=== PATIENT | male | born 1965 | race African-American/Black ===

== ENCOUNTER 2017-04-12 16:44 | Observation (INO) ==
[2017-04-12] MEDS ORDERED: BENADRYL IV ONE (18:30)
[2017-04-12] MEDS ORDERED: DECADRON IV ONE (18:30)
[2017-04-12] MEDS ORDERED: PEPCID IV ONE (18:32)
[2017-04-12] MEDS ORDERED: SODIUM CHLORIDE 0.9% INJ ONE (18:32)
--- NOTE | 2017-04-12 18:40 | PROVIDER DOCUMENTATION ---
HPI-General Adult - General Chief Complaint: Edema Stated Complaint: ALLERGIC REACTION Time Seen by Provider: 04/12/17 16:48 Source: patient Allergies/Adverse Reactions: Patient Allergies Allergy/AdvReac Type Severity Reaction Status Date / Time No Known Allergies Allergy Verified 08/31/13 23:37 Home Medications: Home Medication List Medication Instructions Recorded Confirmed Last Taken Type Insulin Human Regular [Humulin R] 45 units SQ DAILY 01/08/13 04/12/17 04/12/17 07:00 History Insulin Human Regular [Humulin R] 45 units SQ HS 01/08/13 04/12/17 04/11/17 21: 00 History Lisinopril 10 mg PO DAILY 01/08/13 04/12/17 04/11/17 History Metformin [Glucophage] 500 mg PO TID 01/08/13 04/12/17 04/12/17 07:00 History - History of Present Illness -Gen Adult Nature of Presenting Problems: This pt presents today c complaints of angioedema. Pt is currently taking Lisinopril. He called his PCP yesterday and was told to stop taking his lisinopril and come to the ED if his symptoms worsened. There is no tongue swelling but he is now reporting some generalized urticaria. No SOB or difficulty swallowing. No other issues or complaints. Location of Pain/Injury: reports: face, mouth Onset/Duration: reports: 2 days ago Timing: reports: still present Context/Activities at Onset: reports: none Similar Symptoms Previously?: No Recently seen or treated by another doctor?: Yes Review of Systems - Adult - REVIEW OF SYSTEMS - ADULT Constitutional: reports: no symptoms reported. denies: see HPI, fever Eyes: reports: no symptoms reported. denies: discharge, dry eyes Ears, Nose, Mouth & Throat: reports: see HPI. denies: sinus problem, nose pain Cardiovascular: reports: no symptoms reported. denies: chest pain, edema Respiratory: reports: no symptoms reported. denies: chronic cough, cough Gastrointestinal: reports: no symptoms reported. denies: abdominal pain, hematemesis Genitourinary: reports: no symptoms reported. denies: dysuria, discharge Musculoskeletal: reports: no symptoms reported. denies: bone pain, back pain Integumentary: reports: see HPI, hives. denies: hair loss, mole changes, nail changes Neurological: reports: no symptoms reported. denies: ataxia, dizziness/vertigo Psychiatric: reports: no symptoms reported. denies: anxiety, anti-depressant use Endocrine: reports: no symptoms reported Hematologic/Lymphatic: reports: no symptoms reported Allergic/Immunologic: reports: no symptoms reported All Other Systems: Reviewed and Negative Past History - Adult - PAST MEDICAL HISTORY-ADULT Review of Records: reports: Old Records Reviewed, Nursing Assessment Review, Medications Reviewed, Social history reviewed & non-contributory. Major Childhood Illnesses: reports: denies history Cardiovascular: reports: HTN Respiratory: reports: denies history Gastrointestinal: reports: denies history Obstetrical/Gynecological: reports: denies history Genitourinary: reports: denies history Musculoskeletal: reports: denies history Neurological: reports: denies history Endocrine/Immune: reports: denies history Other Conditions: reports: denies history - IMMUNIZATION STATUS Childhood Immunizations: See Nurse Assessment Flu Vaccine: See Nurse Assessment - FAMILY HISTORY Family History: reviewed, not pertinent Physical Exam-General - PHYSICAL EXAM-ADULT Initial Vital Signs Reviewed: Yes - CONSTITUTIONAL General Appearance: appears well, alert, no apparent distress - EYES Eyes: PERRL/EOMI, pink conjunctivae - HEAD, EARS, NOSE, MOUTH & THROAT HENMT: moist mucous membranes, normal ENT inspection, angioedema - NECK Neck: supple, normal inspection - RESPIRATORY Respiratory: chest non-tender, lungs clear, normal breath sounds, no pleuratic chest pain, no respiratory distress, no accessory muscle use. negative: respiratory distress, decreased breath sounds, accessory muscle use - CARDIOVASCULAR Cardiovascular: normal peripheral pulses, regular rate, rhythm. negative: bradycardia, tachycardia - GASTROINTESTINAL (ABDOMEN) Abdominal Exam: normal bowel sounds, non tender, soft - LYMPHATIC Lymphatic: no adenopathy - MUSCULOSKELETAL Back Exam: normal inspection, no CVA tenderness, no vertebral tenderness Extremity: normal range of motion, non-tender - SKIN Integumentary: normal turgor, warm/dry, other (urticaria) - NEUROLOGIC Neurologic: grossly normal, no motor/sensory deficits - PSYCHIATRIC Psych/Mental Status: normal mood/affect, normal thought content, normal thought process, oriented x 3 Progress - PLAN OF CARE/RESULTS Progress/Plan/Lab Results: Vital Signs - 8 hr 04/12/17 17:09 Temperature 98.6 F Pulse Rate 89 Respiratory Rate 18 Blood Pressure 180/98 O2 Sat by Pulse Oximetry 100 Orders Category Date Time Status Saline Loc NOW Care 04/12/17 18:29 Active Transfuse .Give-Transfuse Care 04/12/17 18:29 Active CBC WITH ELECTRONIC DIFF [HEME] Stat Lab 04/12/17 18:29 Uncollected COMPREHENSIVE METABOLIC PANEL [CHEM] Stat Lab 04/12/17 18:29 Uncollected FRESH FROZEN PLASMA [BBK] Stat Lab 04/12/17 18:29 Uncollected TYPE & SCREEN [BBK] Stat Lab 04/12/17 18:29 Uncollected Dexamethasone [Decadron] Med 04/12/17 18:30 Discontinued 10 mg IV NOW ONE Diphenhydramine [Benadryl] Med 04/12/17 18:30 Discontinued 25 mg IV NOW ONE Famotidine [Pepcid] Med 04/12/17 18:32 Discontinued 20 mg IV NOW ONE Sodium Chloride 0.9% Med 04/12/17 18:32 Discontinued 5 - 10 ml INJ NOW ONE - CONSULTS/PCP/HOSPITALIST Notification #1 *Consult/PCP/Hospitalist*: Dr. Desai Time Discussed: 18:54 Consult Disposition: Admit Departure - Departure Date of Disposition Decision: 04/12/17 Time of Disposition Decision: 18:54 DIAGNOSIS: [id number] Qualifiers: Encounter type: initial encounter Qualified Code(s): T78.3XXA - Angioneurotic edema, initial encounter Disposition: ADMITTED INPATIENT 09 Certified Medical Emergency: Emergent Condition: Stable Referrals and Follow-Ups: Ronald Desai MD [Primary Care Provider] - - Critical Care Note This patient required my direct & personal management of CC.: No Attestation - Physician/ CLEO Attestation Patient care was provided by Advanced Practice Provider:: Yes Advanced Practice Provider:: Jerry Morton Advanced Practice Provider documentation review:: The Mid-level provider documentation, treatment plan and medical decision making was reviewed by the physician who agrees with all treatment and medical decision making by the MLP. The physician spent face to face time with patient:: Yes Advanced Practice Provider documentation review:: The physician spent face to face time with this patient and agrees with all MLP documentation, treatment, and medical decision making by the MLP. See provider notes for further information.
[2017-04-12 19:02] LABS: MANUAL DIFF NEEDED? NO
[2017-04-12 19:13] LABS: BASO% 0.2 % (0.0-0.8); EOS# 0.21 X1000 (0.0-0.7); EOS% 1.8 % (0.0-10.0); HEMATOCRIT 43.3 % (42.0-52.0); HEMOGLOBIN 14.7 g/dL (14.0-18.0); IMM GRAN# 0.02 X1000 (0.0-0.04); IMM GRAN% 0.2 % (0.0-0.5); LYMPH# 2.65 X1000 (1.2-3.4); MCH 28.8 PG (27-31); MCHC 33.9 g/dL (33-37); MCV 84.9 FL (81-99); MONO# 0.73 X1000 (0.11-0.59); MONO% 6.3 % (1.7-9.3); MPV 10.1 FL (7.4-10.4); NEUT% 68.5 % (42.2-75.2); PLT 245 X1000 (130-400)
[2017-04-12 19:32] LABS: AGAP 11; ALBUMIN 4.6 g/dL (3.5-5.0); ALKALINE PHOSPHATASE 60 U/L (32-122); BUN 11 mg/dL (8-22); CALCIUM 9.5 mg/dL (8.8-10.2); CHLORIDE 100 mmol/L (98-107); COSMO 279; GOT 25 U/L (10-34); GPT 21 U/L (10-44); POTASSIUM 3.7 mmol/L (3.5-5.1); SODIUM 140 mmol/L (136-145); TCO2 29 mmol/L (25-35); TOTAL BILIRUBIN 0.55 mg/dL (0.20-1.00)
--- NOTE | 2017-04-12 20:25 | HISTORY AND PHYSICAL ---
HISTORY OF PRESENT ILLNESS: Mr. English is a 56-year-old, gentleman who comes to the emergency room with swelling of the lips and facial edema. He recently had right eye surgery for a retinal detachment in [place] and he was given some drops initially. He started having this edema after he had these drops; however, he has hardly been using the drops now and he still has edema. He has been on lisinopril for last several years. He has insulin-dependent diabetes. He has minimal symptoms of neuropathy, like tingling and numbness at times. He also has hypertension. The only surgery he had was a detached retina surgery. He does not smoke. Does not drink. ALLERGIES: Lisinopril or SELINA inhibitors. REVIEW OF SYSTEMS: Other than itching and rash, he did have some urticarial rash earlier. PHYSICAL EXAMINATION: GENERAL: Patient is alert and oriented. He has facial edema with edema of the both upper and lower lips. However, there is no nasopharyngeal edema. VITAL SIGNS: Reveal blood pressure of 186/110, temperature normal, pulse 80 per minute, respiratory rate 20 per minute. HEENT: Head normocephalic. Pupils PERRLA. Fundus examination, he has detached retina on the right side. Detailed fundus exam not done. NECK: Supple. JVP normal. ENT examination unremarkable. There is no evidence of lymphadenopathy, thyroid enlargement, pedal edema, calf tenderness, anemia, cyanosis or clubbing. Pedal pulses well felt. BREASTS: Exam reveals mild gynecomastia. Chest normal inspection. LUNGS: Clear on auscultation. PMI in the normal position. HEART: Sounds normal. No murmur, gallop or rub noted. ABDOMEN: Nondistended. Hernial orifices normal. No guarding, rigidity, free fluid, masses, or organomegaly. Bowel sounds normal. RECTAL: Deferred. COMPLAINT INVESTIGATOR: Higher functions normal. Cranial nerves normal. Motor and sensory system examination unremarkable. Deep tendon reflexes normal. Plantars downgoing. Skull and spine examination normal for age. No cerebellar signs or signs of meningeal irritation. LOCOMOTOR: Unremarkable. SKIN: Unremarkable except for the rash and angioedema involving both upper lip more than the lower lip. He did have some urticarial rash on his trunk. PLAN: Angioedema, probably secondary to lisinopril. We have given him IV Benadryl as well as IV Decadron and IV Protonix now. We will watch him overnight today and definitely stop lisinopril. cc: Ronald Desai MD
[2017-04-12] MEDS ORDERED: HUMULIN R SUBQ ONE (20:32)
[2017-04-12] MEDS ORDERED: LABETALOL IV PRN ×2 (20:32→21:15)
[2017-04-12] MEDS ORDERED: NORCO-5 PO PRN (21:15)
[2017-04-12] MEDS ORDERED: BENADRYL IV PRN (21:15)
[2017-04-13] MEDS: HUMALOG SUBQ SCH ×2 (06:40→10:43)
[2017-04-13 07:34] LABS: BASO% 0.1 % (0.0-0.8); HEMATOCRIT 41.1 % (42.0-52.0); IMM GRAN# 0.02 X1000 (0.0-0.04); IMM GRAN% 0.2 % (0.0-0.5); LYMPH# 0.96 X1000 (1.2-3.4); LYMPH% 7.7 % (20.5-51.1); MANUAL DIFF NEEDED? YES; MCH 28.7 PG (27-31); MCHC 34.1 g/dL (33-37); MCV 84.4 FL (81-99); MONO# 0.51 X1000 (0.11-0.59); MONO% 4.1 % (1.7-9.3); MPV 10.2 FL (7.4-10.4); NEUT% 87.9 % (42.2-75.2); PLT 222 X1000 (130-400); RBC 4.87 XMIL (4.7-6.1)
[2017-04-13 07:53] LABS: LYMPHS 4 % (21-51); MONO 2 % (1-9)
[2017-04-13 07:58] VITALS: BP 161/99
[2017-04-13 08:20] LABS: AGAP 15; BUN 15 mg/dL (8-22); CALCIUM 9.3 mg/dL (8.8-10.2); CHLORIDE 98 mmol/L (98-107); COSMO 284; SODIUM 136 mmol/L (136-145); TCO2 23 mmol/L (25-35)
[2017-04-13 09:18] LABS: POTASSIUM 4.9 mmol/L (3.5-5.1)
--- NOTE | 2017-04-13 12:07 | PROGRESS NOTE ---
DATE: 04/13/2017 Mr. English' blood sugar is still out of control. However his facial edema and angioedema on the lips is much better. I think the hyperglycemia is because of the large dose of Decadron that he received. He is feeling better. I am going to discharge him home. I am going to change the blood pressure medicine to Toprol-XL 100 once daily. -9 cc: Ronald Desai MD
[2017-04-13] MEDS ORDERED: GLUCOPHAGE PO SCH (13:00)
--- NOTE | 2017-04-13 20:46 | DISCHARGE SUMMARY ---
ADMISSION DATE: 04/12/2017 DISCHARGE DATE: 04/13/2017 HOSPITAL COURSE: Mr. English was admitted to the emergency room with severe angioedema of the lips as well as of the face. He had a reaction to lisinopril. The lisinopril was stopped. He was given IV Benadryl as well as Decadron. The Decadron made the blood sugar go up significantly. He is going to be changing from lisinopril to Toprol-XL 100 once daily. I will be seeing him in about 7 days and we will continue his Humulin 70/30, 45 units twice daily as he is taking. cc: Ronald Desai MD
[2017-04-14] MEDS ORDERED: TOPROL XL PO SCH (09:00)
== END 2017-04-13 13:31 | disposition home or self-care (01) ==
LOC: ED 16:44 → 3N 16:44
PROVIDERS: ADMIT Internal Medicine; ATTEND Internal Medicine

== ENCOUNTER 2019-03-04 11:21 | Inpatient (IN) ==
[2019-03-04] MEDS ORDERED: D50W SYRINGE IV PRN (14:00)
--- NOTE | 2019-03-04 14:36 | EKG Report ---
Test Performed on : 03/04/2019 2:22:38 PM Test Reason : R/O infection Blood Pressure : / mmHG Vent. Rate : 074 BPM Atrial Rate : 074 BPM P-R Int : 152 ms QRS Dur : 076 ms QT Int : 412 ms P-R-T Axes : 061 065 082 degrees QTc Int : 457 ms Normal sinus rhythm. Normal ECG No previous ECGs available Confirmed by Dick KYLE, Jean-Paul Soliman ([id number]) on 03/04/2019 3:02:10 PM
[2019-03-04] MEDS ORDERED: INSULIN PEN NEEDLES ONE (14:50)
[2019-03-04] MEDS: ROCEPHIN 1 GM in NS 50 ML IV SCH (14:56)
[2019-03-04 15:05] LABS: BASO# 0.05 X1000 (0.0-0.2); BASO% 0.5 % (0.0-0.8); HEMATOCRIT 40.9 % (42.0-52.0); HEMOGLOBIN 13.6 g/dL (14.0-18.0); IMM GRAN# 0.03 X1000 (0.0-0.04); IMM GRAN% 0.3 % (0.0-0.5); LYMPH# 2.08 X1000 (1.2-3.4); LYMPH% 20.9 % (20.5-51.1); MCHC 33.3 g/dL (33-37); MCV 87.2 FL (81-99); MONO# 0.95 X1000 (0.11-0.59); MONO% 9.5 % (1.7-9.3); MPV 10.3 FL (7.4-10.4); NEUT# 6.54 X1000 (1.4-6.5); NEUT% 65.8 % (42.2-75.2); PLT 214 X1000 (130-400); RBC 4.69 XMIL (4.7-6.1); RDW 13.3 % (11.5-14.5); WBC 9.95 X1000 (4.8-10.8)
--- NOTE | 2019-03-04 15:09 | Diag Imaging Result Doc PS360 ---
EXAM: CHEST-2 VIEWS HISTORY: r/o infection TECHNIQUE: Chest two views COMPARISON: None. FINDINGS: The lungs are well expanded. The heart is not enlarged. The vessels are not distended. There are no infiltrates. No pleural effusions. IMPRESSION: No pneumonia. Electronically signed by Ascencion Boles 03/04/2019 3:06 PM
[2019-03-04 15:26] LABS: AGAP 8; ALB/GLOB RATIO 1.3; ALKALINE PHOSPHATASE 65 U/L (32-122); BUN 13 mg/dL (8-22); CALCIUM 8.7 mg/dL (8.8-10.2); CHLORIDE 100 mmol/L (98-107); COSMO 285; CREATININE 1.1 mg/dL (0.7-1.2); ESTIMATED GFR > 60; GLUCOSE 300 mg/dL (70-104); GOT 24 U/L (10-34); GPT 17 U/L (10-44); POTASSIUM 4.4 mmol/L (3.5-5.1); SODIUM 137 mmol/L (136-145); TCO2 29 mmol/L (25-35); TOTAL BILIRUBIN 0.97 mg/dL (0.20-1.00); TOTAL PROTEIN 7.1 g/dL (6.3-8.3)
[2019-03-04] MEDS: ULTRAM PO PRN ×2 (16:03→22:03)
[2019-03-04] MEDS: GLUCOPHAGE PO SCH (17:30)
[2019-03-04] MEDS: HUMULIN 70/30 SUBQ SCH (17:30)
[2019-03-04] MEDS: HUMALOG SUBQ SCH ×2 (17:33→20:39)
--- NOTE | 2019-03-04 19:33 | Diag Imaging Result Doc PS360 ---
EXAM: FOOT 2 VIEWS LEFT HISTORY: left 2nd toe necrosis TECHNIQUE: Left foot, two views. A complete series was not ordered. COMPARISON: None. FINDINGS: No fracture. No dislocation. Prominent atherosclerosis. No bone erosions identified on these two views. IMPRESSION: No bony abnormality to the second toe. Electronically signed by Ascencion Boles 03/04/2019 7:30 PM
--- NOTE | 2019-03-04 20:47 | HISTORY AND PHYSICAL ---
HISTORY OF PRESENT ILLNESS: Mr. English, who is a 53-year-old gentleman, comes with pain in the left foot with gangrenous toe. He had cellulitis before and acute ischemia. He was treated with Levaquin without much relief, and now the skin is dark black and appears gangrenous, and there is some cellulitis. We decided to admit him to the hospital as he has not been responding to outpatient therapy. Mr. English is a known case of diabetes for the last 20 years and he has hypertension also. He had surgery for a torn retina in the right eye. This is the only surgery he had. ALLERGIES: He is severely allergic to lisinopril. He had severe angioedema from it. REVIEW OF SYSTEMS: He has not been a smoker. Does not drink. Allergic to lisinopril. He has always been noncompliant about his diabetes. Sometimes, he would stick to the diet and sometimes he does not stick to his insulin regimen. Other details are noncontributory. Other than numbness in both feet and pain in the left foot, it is noncontributory. PHYSICAL EXAMINATION: VITAL SIGNS: Temperature 97.5 degrees Fahrenheit, pulse 77 per minute, respiratory rate 16 per minute, blood pressure 134/78. HEENT: Head normocephalic. Pupils PERRLA. Fundus examination could not be done. ENT examination is unremarkable. NECK: Supple. JVP normal. There is no evidence of lymphadenopathy, thyroid enlargement, pedal edema, cough, tenderness, anemia, or clubbing. There is mild cyanosis of the left foot with ischemic left 2nd toe. SKIN: Somewhat dark black in color. It appears gangrenous and there is some cellulitis with it. PULSES: Pedal pulses are feeble. BREASTS: Normal. CHEST: Normal to inspection. LUNGS: Clear to auscultation. HEART: PMI in the normal position. Heart sounds normal. No murmur, gallop or rub noted. ABDOMEN: Nondistended. Hernial orifices normal. No guarding or rigidity, free fluid, masses, or organomegaly. Bowel sounds normal. RECTAL: Deferred. INSPECTOR RETURNED MATERIALS: Higher functions normal. Cranial nerves normal. Motor and sensory system examination reveals some impairment of the touch sensation in both feet. There is some impairment in the pain sensation, too. Deep tendon reflexes are sluggish. Plantars downgoing. SKULL AND SPINE: Examination normal for age. No cerebellar signs or signs of meningeal irritation. Locomotor system normal. IMPRESSION: 1. Severe ischemia of the left foot, especially left 2nd toe. 2. Diabetes, insulin-dependent, with peripheral neuropathy. 3. History of mild hypertension. PLAN: Consult with Dr. Fong and put him on sliding scale as well as continue the regular insulin, and continue his antibiotics, intravenous Rocephin. cc: Ronald Desai MD
[2019-03-05] MEDS: HUMALOG SUBQ SCH ×4 (06:40→21:00)
[2019-03-05] MEDS: TOPROL XL PO SCH (09:20)
[2019-03-05] MEDS: ULTRAM PO PRN ×2 (09:20→18:03)
[2019-03-05] MEDS: HUMULIN 70/30 SUBQ SCH ×2 (09:22→18:03)
[2019-03-05] MEDS: GLUCOPHAGE PO SCH (09:23)
--- NOTE | 2019-03-05 09:45 | PROGRESS NOTE ---
DATE: 03/05/2019 SUBJECTIVE: Mr. English was admitted yesterday with gangrenous toe and cellulitis on the left foot. His blood sugar went down to 65 yesterday. He was seen by Dr. Fong. Foot x-ray is normal. Arterial flow studies have been done. We will continue with the current management. -2 cc: Ronald Desai MD
[2019-03-05] MEDS: ROCEPHIN 1 GM in NS 50 ML IV SCH (14:14)
--- NOTE | 2019-03-05 15:18 | VASCULAR LAB ---
PROCEDURE NAME: Arterial Bilateral Legs - 03/04/2019 MILITARY ANALYST: REFERRING PHYSICIAN: Dr. Desai. INDICATIONS: Gangrene toes. FINDINGS: Brachial artery was 149, left 158, high thigh on the right is 260, left 214, low thigh on the right is 208, left 188, calf on the right 231, left 170, DP on the right 193, on the left 0,PT on the right is 201, left. 135. Toe pressure on the right 117, left 43. YESSENIA on the right 1.27, left 0.85. TBI on the right 0.74, left 0.27. FINDINGS: In the right lower extremity there are normal waveforms, normal YESSENIA to the level of the toes. On the left, there does appear there is some blunting distally in the dorsalis pedis pulse is not obtained with significant blunting of the toe waveforms and depressed both YESSENIA and toe brachial indices. SUMMARY: Based on this study, would suspect some degree of distal tibial disease contributing, possibly embolic in nature. Would recommend correlation with angiography if clinically indicated. cc: MD Ronald Cruz MD [facility]ITALTo[facility]
--- NOTE | 2019-03-05 22:24 | GENERAL SURGERY PROGRESS NOTE ---
DATE: 03/05/2019 TIME: 5:38 p.m. Mr. English lower extremity arterial study shows pulsatile flow to the ankle level. It is flat in the dorsum of the foot and at the toe level. There is no evidence of osteomyelitis. The plan will be to excisionally debride his left second toe to viable tissue. I did discuss with him that he may ultimately lose his toe. He understands that. We will try to plan to proceed with the debridement tomorrow in the operating room. cc: MD Ronald Greco MD
[2019-03-06] MEDS: HUMALOG SUBQ SCH ×3 (06:07→16:46)
--- NOTE | 2019-03-06 09:20 | PROGRESS NOTE ---
DATE: 03/06/2019 SUBJECTIVE: Mr. English is doing well. He is going to have debridement on the left 2nd toe by Dr. Fong today. OBJECTIVE: His vital signs are stable. Lungs clear. Heart sounds are normal. He is ambulatory. PLAN: We will continue with the current management. cc: Ronald Desai MD
[2019-03-06] MEDS ORDERED: DIPRIVAN 1% ONE (10:14)
[2019-03-06] MEDS ORDERED: FENTANYL ONE (10:14)
[2019-03-06] MEDS ORDERED: VERSED ONE (10:14)
[2019-03-06] MEDS ORDERED: ROBINUL ONE (10:33)
[2019-03-06] MEDS: HUMULIN 70/30 SUBQ SCH ×2 (10:34→16:44)
[2019-03-06] MEDS: TOPROL XL PO SCH ×2 (10:35→16:44)
[2019-03-06] MEDS: ULTRAM PO PRN ×2 (12:22→18:37)
[2019-03-06] MEDS: ROCEPHIN 1 GM in NS 50 ML IV SCH (15:28)
[2019-03-06] MEDS ORDERED: INSULIN PEN NEEDLES ONE (16:47)
[2019-03-06] MEDS ORDERED: HUMULIN 70/30 SUBQ ONE (17:00)
--- NOTE | 2019-03-06 18:15 | OPERATIVE NOTE ---
PROCEDURE DATE: 03/06/2019 PROCEDURE: Excisional debridement of skin and soft tissue, left second toe (2.5 x 2 cm). SURGEON: Aron Fong MD. ROUTE SALES TRAINEE: Demi. PREOPERATIVE DIAGNOSIS: Necrosis, left second toe. POSTOPERATIVE DIAGNOSIS: Necrosis, left second toe. DESCRIPTION OF PROCEDURE: Satisfactory general anesthesia was achieved. The left foot was prepped and draped in a sterile fashion. We incised the tissue at the border of the necrotic tissue. We then circumferentially excised the necrotic tissue. It measured 2.5 x 2 cm and went through the subcutaneous tissue all the way down to the tendon and near the bone. We removed all of the necrotic tissue. We were left with what appeared to be viable tissue. We put moistened gauze on it until we got a DuoDERM and then covered it with DuoDERM. There was no bleeding present. We placed a DuoDERM on it to keep it moist and then covered it with a clean gauze. He tolerated it well, was sent to the recovery room in satisfactory condition. cc: MD Ronald Greco MD
[2019-03-07] MEDS: HUMALOG SUBQ SCH ×3 (00:32→13:25)
[2019-03-07 08:05] LABS: AGAP 9; BUN 13 mg/dL (8-22); CALCIUM 9.2 mg/dL (8.8-10.2); CHLORIDE 98 mmol/L (98-107); COSMO 273; CREATININE 1.2 mg/dL (0.7-1.2); ESTIMATED GFR > 60; GLUCOSE 148 mg/dL (70-104); POTASSIUM 4.9 mmol/L (3.5-5.1); SODIUM 135 mmol/L (136-145); TCO2 28 mmol/L (25-35)
[2019-03-07] MEDS: TOPROL XL PO SCH (08:38)
[2019-03-07] MEDS: ULTRAM PO PRN (08:38)
[2019-03-07] MEDS ORDERED: NOVOLOG MIX 70/30 SUBQ SCH (09:00)
[2019-03-07 11:41] VITALS: BP 150/83
--- NOTE | 2019-03-07 12:05 | PROGRESS NOTE ---
DATE: 03/07/2019 Mr. English had debridement of necrotic tissue from the left 2nd toe done by Dr. Fong yesterday. He understands that he has to control the diabetes well. He can have further damage to the toe, and in that case he may have to go through amputation of the left 2nd toe. He will be discharged today with home health care nursing. His blood sugars are stable at the present time. -1 cc: Ronald Desai MD
[2019-03-07] MEDS: ROCEPHIN 1 GM in NS 50 ML IV SCH (14:19)
--- NOTE | 2019-03-07 21:54 | GENERAL SURGERY PROGRESS NOTE ---
DATE: 03/07/2019 TIME: 3:25 in the afternoon. Mr. English' wound is a bit dry. I have recommended Vashe soaked gauze twice a day for him to do at home, so it is okay with me if he be discharged. He is not to wear any binding shoe, but rather a sandal or something that will not compress his toes together. He will return to see me in the office in 2 weeks. cc: MD Ronald Greco MD
--- NOTE | 2019-03-08 14:09 | DISCHARGE SUMMARY ---
ADMISSION DATE: 03/04/2019 DISCHARGE DATE: 03/07/2019 HISTORY AND HOSPITAL COURSE: Mr. English was admitted with gangrenous left 2nd toe and cellulitis. Foot x-ray did not show any bony abnormality. The lab data revealed white count was 9.95, hemoglobin was 13.6. Electrolytes normal. Blood sugar fluctuated, at one point it went down to 65 and we had to give D50. Dr. Fong was consulted. Vascular studies were done and extremity arterial studies revealed distal tibial vessel contributing, possibly embolic in nature. Dr. Fong decided to do debridement of the necrotic tissue, which was done. Is feeling better. DISCHARGE MEDICATIONS: I am going to discharge him with a prescription of tramadol for 30 tablets and Keflex for about 7 more days. FOLLOWUP: I will see him in the office in about 7 to 10 days. cc: Ronald Desai MD
== END 2019-03-07 16:47 | disposition home health service (06) | DRG 264 ==
LOC: DIRADM 11:21 → 3N 13:42
PROVIDERS: ADMIT Internal Medicine; ATTEND Internal Medicine
CPT/HCPCS: 71020; 71046; 73620; 80048; 80053; 82948; 85025; 93005; 93010; 93923; A9270; J0696; J1815; J2250; J3010; XXXXX

== ENCOUNTER 2019-04-04 15:34 | Inpatient (IN) ==
[2019-04-04 16:33] LABS: BASO# 0.04 X1000 (0.0-0.2); BASO% 0.3 % (0.0-0.8); EOS# 0.27 X1000 (0.0-0.7); EOS% 1.8 % (0.0-10.0); HEMATOCRIT 41.1 % (42.0-52.0); HEMOGLOBIN 13.8 g/dL (14.0-18.0); IMM GRAN# 0.04 X1000 (0.0-0.04); IMM GRAN% 0.3 % (0.0-0.5); LYMPH# 2.05 X1000 (1.2-3.4); LYMPH% 13.5 % (20.5-51.1); MCH 28.3 PG (27-31); MCHC 33.6 g/dL (33-37); MCV 84.2 FL (81-99); MONO# 1.41 X1000 (0.11-0.59); MONO% 9.3 % (1.7-9.3); MPV 9.6 FL (7.4-10.4); NEUT# 11.35 X1000 (1.4-6.5); NEUT% 74.8 % (42.2-75.2); PLT 417 X1000 (130-400); RBC 4.88 XMIL (4.7-6.1); RDW 12.4 % (11.5-14.5); WBC 15.16 X1000 (4.8-10.8)
[2019-04-04] MEDS ORDERED: NS 1,000 ML IV ONE ×2 (17:00→17:40)
[2019-04-04] MEDS ORDERED: VANCOMYCIN 1 GM/NS 1 GM/250 ML IVPB IV ONE (17:00)
[2019-04-04] MEDS ORDERED: MORPHINE IV ONE (17:00)
[2019-04-04] MEDS ORDERED: ZOSYN 4.5 GM in NS 100 ML IV ONE (17:00)
[2019-04-04 17:01] LABS: AGAP 14; ALB/GLOB RATIO 0.8; ALBUMIN 3.6 g/dL (3.5-5.0); ALKALINE PHOSPHATASE 82 U/L (32-122); BUN 16 mg/dL (8-22); CALCIUM 9.6 mg/dL (8.8-10.2); CHLORIDE 100 mmol/L (98-107); COSMO 281; CREATININE 1.3 mg/dL (0.7-1.2); ESTIMATED GFR > 60; GLUCOSE 168 mg/dL (70-104); GOT 31 U/L (10-34); GPT 26 U/L (10-44); POTASSIUM 4.3 mmol/L (3.5-5.1); SODIUM 138 mmol/L (136-145); TCO2 24 mmol/L (25-35); TOTAL BILIRUBIN 0.34 mg/dL (0.20-1.00); TOTAL PROTEIN 8.3 g/dL (6.3-8.3)
[2019-04-04] MEDS ORDERED: ZOFRAN IV PRN (17:40)
[2019-04-04] MEDS ORDERED: TYLENOL PO PRN (17:40)
--- NOTE | 2019-04-04 17:40 | PROVIDER DOCUMENTATION ---
This chart was entered by Alejandra Fuller Scribe, acting as scribe for Juan Roa MD. HPI-Rash/Wound/ReCheck - General Chief Complaint: Post Op Complaint Stated Complaint: POST OP COMPLAINT Time Seen by Provider: 04/04/19 16:54 Source: patient Allergies/Adverse Reactions: Allergies Allergy/AdvReac Type Severity Reaction Status Date / Time lisinopril Allergy Severe ANAPHYLAXIS Verified 03/27/19 05:58 Home Medications: Home Medication List Medication Instructions Recorded Confirmed Last Taken Type Metformin [Glucophage] 500 mg PO TID 01/08/13 03/27/19 03/26/19 21:45 History Metoprolol Succinate E.r. [Toprol 100 mg PO DAILY tab 03/07/19 03/27/19 03/26/19 21:45 Rx Xl] Gabapentin [Neurontin] 100 mg PO TID 03/26/19 03/27/19 03/26/19 21:45 History Insulin Novolog 70/30 [Novolog Mix 45 unit SUBQ BID 03/26/19 03/27/19 03/26/19 21:45 History 70/30] Cephalexin [Keflex] 500 mg PO 4XDAY #30 cap 03/27/19 Unknown Rx Hydrocodone/APAP 10 mg/325 mg 1 ea PO Q6H PRN PRN #30 tab 03/27/19 Unknown Rx [[place]-10] - History of Present Illness-Dermatology Nature of Presenting Problem: Patient is a 53 year old male who presents with a post op complaint. Patient states having a left 2nd toe amputation [address] Fong. States he noticed an odor and skin color change to surgical site and left 3rd toe. Denies fever. Location: reports: feet (left) Quality: reports: painful Severity: reports: mild Onset/Duration: reports: gradual Timing: reports: still present, getting worse Context/Associated Symptoms: reports: other (odor and skin color change) Locality of Occurance: Home Similar Symptoms Previously?: Yes Recently seen or treated by another doctor?: Yes Review of Systems - Adult - REVIEW OF SYSTEMS - ADULT Constitutional: reports: no symptoms reported. denies: chills, fever, fatique Eyes: reports: no symptoms reported Ears, Nose, Mouth & Throat: reports: no symptoms reported Cardiovascular: reports: no symptoms reported Respiratory: reports: no symptoms reported Gastrointestinal: reports: no symptoms reported Genitourinary: reports: no symptoms reported Musculoskeletal: reports: see HPI, other (left foot pain). denies: back pain, neck pain Integumentary: reports: other (odor and skin color change to left 3rd toe and surgical site.). denies: hives, itching, rash Neurological: reports: no symptoms reported Psychiatric: reports: no symptoms reported Endocrine: reports: no symptoms reported Hematologic/Lymphatic: reports: no symptoms reported Allergic/Immunologic: reports: no symptoms reported All Other Systems: Reviewed and Negative Past History - Adult - PAST MEDICAL HISTORY-ADULT Review of Records: reports: Old Records Reviewed, Nursing Assessment Review, Medications Reviewed, Social history reviewed & non-contributory. Major Childhood Illnesses: reports: denies history Cardiovascular: reports: HTN Respiratory: reports: denies history Gastrointestinal: reports: denies history Obstetrical/Gynecological: reports: denies history Genitourinary: reports: denies history Musculoskeletal: reports: denies history Neurological: reports: denies history Endocrine/Immune: reports: Diabetes Other Conditions: reports: denies history - PRIOR SURGERIES/PROCEDURES Surgical/Procedure History: reports: reviewed, not pertinent - IMMUNIZATION STATUS Childhood Immunizations: See Nurse Assessment Flu Vaccine: See Nurse Assessment - FAMILY HISTORY Family History: reviewed, not pertinent - SOCIAL HISTORY Smoking: denies Substance Use: alcohol Alcohol Use Frequency: occasionally Physical Exam-General - PHYSICAL EXAM-ADULT Initial Vital Signs Reviewed: Yes - CONSTITUTIONAL General Appearance: alert, no apparent distress. negative: lethargic, slow to respond - EYES Eyes: PERRL/EOMI, pink conjunctivae - HEAD, EARS, NOSE, MOUTH & THROAT HENMT: normocephalic/atraumatic, moist mucous membranes, normal ENT inspection - RESPIRATORY Respiratory: chest non-tender, lungs clear, normal breath sounds. negative: crackles, rhonchi, stridor - CARDIOVASCULAR Cardiovascular: normal peripheral pulses, regular rate, rhythm. negative: tachycardia, systolic murmur - GASTROINTESTINAL (ABDOMEN) Abdominal Exam: normal bowel sounds, non tender, soft. negative: guarding, rebound - MUSCULOSKELETAL Extremity: erythema (dorsum of left foot.), tenderness (left foot), other (warmth to dorsum of left foot. necrosis to surgical site of 2nd toe amputation and 3rd toe. odor present.). negative: deformity - SKIN Integumentary: erythema (dorsum of left foot), warm (dorsum of left foot), other (necrosis to surgical site of 2nd toe amputation and 3rd toe. odor present.). negative: cyanosis - NEUROLOGIC Neurologic: grossly normal. negative: aphasia, facial droop - PSYCHIATRIC Psych/Mental Status: normal mood/affect, oriented x 3. negative: anxious Progress - PLAN OF CARE/RESULTS Progress/Plan/Lab Results: Vital Signs - 8 hr 04/04/19 15:43 Temperature 97.9 F Pulse Rate 86 Respiratory Rate 18 Blood Pressure 149/86 O2 Sat by Pulse Oximetry 98 Laboratory Results - last 24 hr 04/04/19 04/04/19 15:58 15:58 WBC 15.16 H RBC 4.88 Hgb 13.8 L Hct 41.1 L MCV 84.2 MCH 28.3 MCHC 33.6 RDW Std Deviation 12.4 Plt Count 417 H MPV 9.6 Immature Gran % (Auto) 0.3 Neut % (Auto) 74.8 Lymph % (Auto) 13.5 L [place] % (Auto) 9.3 Eos % (Auto) 1.8 Baso % (Auto) 0.3 Immature Gran # (Auto) 0.04 Neut # (Auto) 11.35 H Lymph # (Auto) 2.05 [place] # (Auto) 1.41 H Eos # (Auto) 0.27 Baso # (Auto) 0.04 Sodium 138 Potassium 4.3 Chloride 100 Carbon Dioxide 24 L Anion Gap 14 BUN 16 Creatinine 1.3 H Estimated GFR/1.73 m2 > 60 BUN/Creatinine Ratio 12 Glucose 168 H Calculated Osmolality 281 Calcium 9.6 Total Bilirubin 0.34 AST 31 ALT 26 Alkaline Phosphatase 82 Total Protein 8.3 Albumin 3.6 Globulin 4.7 Albumin/Globulin Ratio 0.8 Orders Category Date Time Status CHEST-PORTABLE [RAD] Stat Exams 04/04/19 16:59 Ordered FOOT COMPLETE LEFT [RAD] Stat Exams 04/04/19 16:59 Ordered ACETONE SERUM [CHEM] Stat Lab 04/04/19 17:37 Ordered BLOOD CULTURE [BLDCUL] Stat Lab 04/04/19 17:37 Ordered CBC WITH ELECTRONIC DIFF [HEME] Stat Lab 04/04/19 15:58 Completed COMPREHENSIVE METABOLIC PANEL [CHEM] Stat Lab 04/04/19 15:58 Completed LACTATE, PLASMA [CHEM] Stat Lab 04/04/19 17:37 Ordered SED RATE [HEME] Stat Lab 04/04/19 17:37 Ordered WOUND CULTURE INC GRAM STAIN [RM] Stat Lab 04/04/19 16:58 Uncollected 0.9% Sodium Chloride Inj [Ns] 1,000 ml Med 04/04/19 17:00 Active IV 999 mls/hr Morphine Med 04/04/19 17:00 Discontinued 4 mg IV NOW ONE Piperacillin/Tazobactam [Zosyn] 4.5 gm Med 04/04/19 17:00 Active 0.9% Sodium Chloride Inj [Ns] 100 ml IV NOW Vancomycin 1 gm/Ns Med 04/04/19 17:00 Active 1 gm in 250 ml IV NOW Generalized Adult Illness >60 Stat Oth 04/04/19 15:49 Ordered Result Diagrams: 04/04/19 15:58 04/04/19 15:58 - CONSULTS/PCP/HOSPITALIST Notification #1 *Consult/PCP/Hospitalist*: Dr. Desai Time Discussed: 17:19 Reason/Comments: Dr. Roa consulted with Dr. Desai about patient. Consult Disposition: Admit #2 Consult: Dr. Mena Time Discussed: 17:25 Reason/Comments: Dr. Roa consulted with Dr. Mena about patient. Consult Disposition: Will see in ED Departure - Departure Date of Disposition Decision: 04/04/19 Time of Disposition Decision: 17:39 DIAGNOSIS: Gangrene of toe of left foot, Cellulitis of left foot due to methicillin- resistant Staphylococcus aureus, Type 2 diabetes mellitus with hyperglycemia, with long-term current use of insulin Disposition: ADMITTED INPATIENT 09 Certified Medical Emergency: Emergent Condition: Fair Referrals and Follow-Ups: Ronald Desai MD [Primary Care Provider] - - Critical Care Note This patient required my direct & personal management of CC.: No Attestation - Physician/ CLEO Attestation Patient care was provided by Advanced Practice Provider:: No The physician spent face to face time with patient:: Yes Advanced Practice Provider documentation review:: Supervising physician onsite and consulted in the evaluation and care of this patient. The physician did have a face to face encounter with the patient. This chart was documented by the indicated scribe, (Alejandra Fuller Scribe) and accurately reflects the services I performed and decisions made by , Juan Roa MD, as attested by the provider's signature.
--- NOTE | 2019-04-04 18:28 | Diag Imaging Result Doc PS360 ---
EXAM: CHEST-PORTABLE INDICATION: osteomyelitis TECHNIQUE: One view COMPARISON: 03/04/2019 FINDINGS: The lungs are grossly clear. There is no discrete pleural fluid collection or pneumothorax. The cardiomediastinal silhouette and central vasculature are grossly unremarkable. IMPRESSION: No evidence of acute pathology by plain radiograph. Electronically signed by Glenroy Correa 04/04/2019 6:25 PM
--- NOTE | 2019-04-04 18:31 | Diag Imaging Result Doc PS360 ---
EXAM: FOOT COMPLETE LEFT INDICATION: osteomyelitis TECHNIQUE: 3 views COMPARISON: 03/04/2019 FINDINGS: There has been interval amputation of the second toe proximal to the MTP joint. No new bony erosions are appreciated. The visualized joint spaces are essentially unremarkable. There is mild soft tissue edema around the midfoot and forefoot. There is atherosclerotic calcification. IMPRESSION: Interval amputation of the second toe and soft tissue edema. No new bony erosions are appreciated. Electronically signed by Glenroy Correa 04/04/2019 6:28 PM
[2019-04-04] MEDS ORDERED: VANCOMYCIN IV PER PHARMACY MISC SCH (19:00)
[2019-04-04] MEDS ORDERED: NORCO-10 PO PRN (20:11)
[2019-04-04] MEDS ORDERED: VANCOMYCIN 2 GM in NS 500 ML IV SCH (21:00)
[2019-04-04] MEDS: MORPHINE IV PRN (22:03)
--- NOTE | 2019-04-04 23:24 | HISTORY AND PHYSICAL ---
HEPARIN LOCK: Mr. English is a 53-year-old gentleman, patient of mine for the last several years, has diabetes for at least last 15 to 20 years, and has been somewhat noncompliant about his diet and medications. He used to smoke a long time ago, however, he has not been smoking, does not drink. He is allergic to lisinopril, he has severe angioneurotic edema. Mr. English recently developed gangrene of the left 2nd toe, was seen by Dr. Fong, who initially debrided the area, but later on had to amputate the 3rd toe. He was doing fine for last several days. Now he has developed gangrene of the middle toe with some gangrenous changes on the dorsum of the foot also. Pedal pulses are absent in the foot. For diabetes he takes Humulin N 45 units twice a day, and he takes medications for hypertension. He also takes metformin. PAST SURGICAL HISTORY: He did not have any surgical history, except for the amputation of the toe. PAST MEDICAL HISTORY: He has severe angioedema with the lisinopril. Other details are noncontributory. 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 REVIEW OF SYSTEMS: Other than severe pain in the left foot, it is noncontributory. PHYSICAL EXAMINATION: GENERAL: Patient is alert. VITAL SIGNS: Reveal temperature normal, pulse 86 per minute, respiratory rate 18 per minute, blood pressure 149/86. HEAD: Normocephalic. EYES: PERRLA. 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 NECK: Supple. JVP normal. EARS, NOSE, AND THROAT: Unremarkable. GENERAL APPEARANCE: There is no evidence of lymphadenopathy, thyroid enlargement, pedal edema, calf tenderness, anemia or clubbing. EXTREMITIES: He has cyanosis with gangrenous changes in the in the middle toe on the left side and dorsum of the foot. Pedal pulses definitely absent on the left side, very feeble on the right side. BREAST: Normal. CHEST: Normal inspection. LUNGS: Clear on auscultation PMI in the normal position. HEART: Sounds normal. No murmur, gallop or rub noted. ABDOMEN: Nondistended. Hernial orifice is normal. No guarding, rigidity, free fluid, masses, or organomegaly. Bowel sounds normal. RECTAL: Deferred. MANAGEMENT TRAINER: Higher functions normal. Cranial nerves normal. Motor and sensory system examination unremarkable. Deep tendon reflexes normal. Plantars downgoing. Skull and spine examination normal for age. No cerebellar signs or signs of meningeal irritation on locomotor exam. SKIN: Unremarkable except for the gangrenous changes in the in left middle toe and the foot. IMPRESSION: Gangrene with minimal cellulitis in the left foot. PLAN: Start IV antibiotics. Get a surgical consult with Dr. Fong or his associates. I will continue his current management. cc: Ronald Desai MD
[2019-04-05] MEDS: HUMULIN N SUBQ SCH ×4 (00:26→22:07)
[2019-04-05] MEDS: MORPHINE IV PRN ×4 (00:27→22:05)
--- NOTE | 2019-04-05 00:37 | GENERAL SURGERY CONSULTATION ---
DATE: 04/04/2019 HISTORY OF PRESENT ILLNESS: This is a patient Dr. Fong's who underwent a ray amputation left 2nd digit on 03/27/2019. He also has a history of distal peripheral vascular disease. Dr. Fong performed his amputation with plans for possible vascular intervention if he were to not heal. He noted increasing necrosis of his left 3rd toe, progressing up his foot with some pain, prompting an ER visit. MEDICAL HISTORY: 1. Peripheral vascular disease. 2. Hypertension. 3. Diabetes poorly controlled. SURGICAL HISTORY: Negative for vascular procedures. He has had a left 2nd ray amputation recently. SOCIAL HISTORY: Does not smoke or drink. FAMILY HISTORY: Reviewed and noncontributory. REVIEW OF SYSTEMS: Ten point negative. PHYSICAL EXAMINATION: Vital signs: He is afebrile, pulse 86, blood pressure is 149/86, oxygen saturation 98%. General: He is alert, no acute distress. HEENT: No scleral icterus. No cervical mass. Cardiovascular: Normal rate. Pulmonary: No increased work of breathing. Abdomen: Soft. Integument: Warm, dry. Peripheral vascular: His feet are warm. Pedal pulse not easily palpable. On the left, there is an amputation wound of the left second toe extending to the mid foot with necrosis around the wound edge and necrosis and ischemia of the left 3rd toe. The remaining toes do seem to have adequate capillary refill. Psychiatric: Appropriate affect. Neurologic: No gross deficits. LABORATORY: White count 15, hematocrit 41, platelets 417,000. Creatinine is 1.3. LFTs normal. Lactate 0.8. I reviewed his plain films that show postsurgical changes but no obvious osteo. ASSESSMENT AND PLAN: A 53-year-old gentleman with peripheral vascular disease, status post amputation left foot. He has got worsening necrosis of his wound and of the adjacent 3rd toe. We will continue Betadine paint and antibiotics. He will need surgical debridement. I do not see obvious signs of infection currently. There is a little bit of erythema, but no purulence. Dr. Fong will be back and we will discuss further intervention. If he were to deteriorate, we may pursue more urgent debridement over the weekend. cc: MD Ronald Cruz MD
[2019-04-05] MEDS: ZOSYN 3.375 GM in NS 50 ML IV SCH ×5 (02:47→22:07)
[2019-04-05] MEDS ORDERED: ZOSYN ONE (06:23)
[2019-04-05] MEDS: NORCO-10 PO PRN ×3 (10:14→22:45)
[2019-04-05] MEDS: NEURONTIN PO SCH ×2 (12:28→17:28)
[2019-04-05] MEDS: LOVENOX SUBQ SCH ×2 (12:28→22:06)
[2019-04-05] MEDS: TOPROL XL PO SCH (12:35)
--- NOTE | 2019-04-05 15:23 | PROGRESS NOTE ---
DATE: 04/05/2019 SUBJECTIVE: Mr. English has cellulitis on the left foot with gangrene of the middle toe and some necrosis in the forefoot. He has been on IV antibiotics. We will also keep him on Lovenox and continue his gabapentin. Overall condition is unchanged. -1 cc: Ronald Desai MD
--- NOTE | 2019-04-05 18:32 | GENERAL SURGERY PROGRESS NOTE ---
DATE: 04/05/2019 SUBJECTIVE: No fevers overnight. OBJECTIVE: Pulse is 94 this morning. Blood pressure 160/89. He is having some pain in his left foot. His dressing is clean. LABORATORY DATA: I have reviewed his labs. Nothing new this morning other than glucose of 95. ASSESSMENT AND PLAN: This is a 53-year-old gentleman with progressive necrosis of the left foot. He has peripheral vascular disease, status post left second toe amputation. We will continue local wound care with Betadine paint through the weekend. He is on antibiotics. We will work on his pain control related to his chronic ischemia. cc: MD Ronald Cruz MD
[2019-04-06] MEDS: MORPHINE IV PRN ×3 (00:44→14:02)
[2019-04-06] MEDS: ZOSYN 3.375 GM in NS 50 ML IV SCH ×5 (01:44→23:18)
[2019-04-06] MEDS: LOVENOX SUBQ SCH ×3 (01:47→23:18)
[2019-04-06] MEDS: NORCO-10 PO PRN ×4 (04:40→20:37)
[2019-04-06] MEDS: HUMULIN N SUBQ SCH (08:06)
[2019-04-06] MEDS: NEURONTIN PO SCH ×3 (08:07→17:04)
[2019-04-06] MEDS: TOPROL XL PO SCH (08:07)
--- NOTE | 2019-04-06 13:05 | PROGRESS NOTE ---
DATE: 04/06/2019 SUBJECTIVE: Mr. English was slightly hypoglycemic this morning. Blood sugar went down to 63. Blood cultures have been negative. Blood pressure was 169/95. He is on IV antibiotics. His wound culture so far is growing a gram-negative marvin. I do not have the identification yet. For his hypertension, he is getting metoprolol succinate. I am going to add amlodipine 5 mg daily on him. -0 cc: Ronald Desai MD
--- NOTE | 2019-04-06 13:49 | GENERAL SURGERY PROGRESS NOTE ---
DATE: 04/06/2019 SUBJECTIVE: Pain is better controlled, but still having some pain. No fevers. No tachycardia. Dressing changes are going well. OBJECTIVE: General: He is alert. Cardiovascular: Normal rate. Pulmonary: No increased work of breathing. Left foot has stable necrotic changes with improved cellulitis. DIAGNOSTIC STUDIES: Glucoses were marginal overnight and 61 being a low. ASSESSMENT AND PLAN: A 53-year-old gentleman with further necrosis after left second toe amputation. He has distal peripheral vascular disease, small vessel. We will continue local wound care with Betadine paint. Waiting on Dr. Fong's return. cc: MD Ronald Cruz MD
[2019-04-06] MEDS: NORVASC PO SCH (15:00)
[2019-04-07] MEDS: NORCO-10 PO PRN ×5 (00:26→21:52)
[2019-04-07] MEDS: HUMULIN N SUBQ SCH ×3 (01:20→21:41)
[2019-04-07] MEDS: ZOSYN 3.375 GM in NS 50 ML IV SCH ×4 (06:29→21:40)
[2019-04-07] MEDS: NORVASC PO SCH (08:38)
[2019-04-07] MEDS: TOPROL XL PO SCH (08:38)
[2019-04-07] MEDS: NEURONTIN PO SCH ×3 (08:38→16:54)
[2019-04-07] MEDS: MORPHINE IV PRN ×3 (09:29→16:59)
--- NOTE | 2019-04-07 09:34 | PROGRESS NOTE ---
DATE: 04/07/2019 His blood sugar was 100. Wound culture grew 2 bugs namely Citrobacter freundii and Enterobacter cloacae complex; both were sensitive to piperacillin. He is also getting vancomycin, which we will stop. He will be evaluated by Dr. Fong today. Overall condition otherwise is stable. cc: Ronald Desai MD
[2019-04-07] MEDS: LOVENOX SUBQ SCH ×2 (11:01→21:39)
--- NOTE | 2019-04-07 16:03 | GENERAL SURGERY PROGRESS NOTE ---
DATE: 04/07/2019 Mr. English has progressive necrosis of his 3rd toe with necrosis extending into his forefoot. He has an occluded arch in his foot and is probably going to lose his foot unless he has some kind of intervention into his arch. I will try to seek consultation at a tertiary care center regarding Mr. English. cc: MD Ronald Greco MD
[2019-04-08] MEDS: ZOSYN 3.375 GM in NS 50 ML IV SCH ×5 (01:24→23:17)
[2019-04-08] MEDS: LOVENOX SUBQ SCH ×3 (01:25→23:16)
[2019-04-08] MEDS: NORCO-10 PO PRN ×5 (02:22→21:29)
[2019-04-08] MEDS: MORPHINE IV PRN ×3 (05:02→19:51)
[2019-04-08] MEDS: HUMULIN N SUBQ SCH ×2 (08:16→21:05)
[2019-04-08] MEDS: TOPROL XL PO SCH (08:17)
[2019-04-08] MEDS: NEURONTIN PO SCH ×3 (08:17→17:01)
[2019-04-08] MEDS: NORVASC PO SCH (08:17)
--- NOTE | 2019-04-08 09:29 | PROGRESS NOTE ---
DATE: 04/08/2019 SUBJECTIVE: Mr. English is in about the same general condition. He has 2 bacterias growing from the wound, and he is getting the appropriate antibiotics. Dr. Fong tried to get a consultation with tertiary [facility]. We will find out about it in the next day or two, and then decide about discharge plans. Mr. English is on enoxaparin at the present time. cc: Ronald Desai MD
--- NOTE | 2019-04-08 17:48 | GENERAL SURGERY PROGRESS NOTE ---
DATE: 04/08/2019 SUBJECTIVE: Mr. English' exam is the same. I have called the surgeon at [facility], have not heard back from him yet. As soon as I hear back from him, we will develop a disposition. I discussed this with Mr. English' son. cc: MD Ronald Greco MD
[2019-04-09] MEDS: MORPHINE IV PRN ×2 (00:36→03:19)
[2019-04-09] MEDS: NORCO-10 PO PRN ×6 (01:11→21:42)
[2019-04-09] MEDS: ZOSYN 3.375 GM in NS 50 ML IV SCH ×4 (06:17→23:49)
--- NOTE | 2019-04-09 09:26 | PROGRESS NOTE ---
DATE: 04/09/2019 Mr. English is getting IV antibiotics for his foot infection, as well as is being worked on. Dr. Fong is going to check with the endovascular surgeon and then decide about further management. cc: Ronald Desai MD
[2019-04-09] MEDS: NORVASC PO SCH (09:58)
[2019-04-09] MEDS: NEURONTIN PO SCH ×3 (09:58→21:42)
[2019-04-09] MEDS: HUMULIN N SUBQ SCH ×2 (09:59→21:43)
[2019-04-09] MEDS: TOPROL XL PO SCH (09:59)
[2019-04-09] MEDS: LOVENOX SUBQ SCH ×2 (11:43→23:49)
--- NOTE | 2019-04-09 18:26 | GENERAL SURGERY PROGRESS NOTE ---
DATE: 04/09/2019 SUBJECTIVE: Mr. English is the same. ASSESSMENT AND PLAN: I talked with Dr. Alcantar at [facility], and I think he plans to see him in his clinic next Sunday at the [facility]. We can arrange for his discharge and his outpatient visit to see Dr. Alcantar at [facility]. cc: MD Ronald Greco MD
[2019-04-10] MEDS: ZOSYN 3.375 GM in NS 50 ML IV SCH ×4 (06:07→22:12)
[2019-04-10] MEDS: NORCO-10 PO PRN ×5 (06:07→22:12)
--- NOTE | 2019-04-10 08:11 | PROGRESS NOTE ---
DATE: 04/10/2019 SUBJECTIVE: Mr. English is having a lot of pain in the foot. He has an outpatient appointment on Sunday at [facility]. Since the pain is severe this morning according to him, he is getting IV antibiotics. Tomorrow will be 5 complete days for IV Pipracil, and we will probably discharge him in the morning, and let him attend the [facility] as an outpatient. cc: Ronald Desai MD
[2019-04-10] MEDS: TOPROL XL PO SCH (08:35)
[2019-04-10] MEDS: NORVASC PO SCH (08:35)
[2019-04-10] MEDS: NEURONTIN PO SCH ×3 (08:35→18:22)
[2019-04-10] MEDS: HUMULIN N SUBQ SCH ×2 (08:36→23:01)
[2019-04-10] MEDS: LOVENOX SUBQ SCH ×2 (13:52→22:12)
--- NOTE | 2019-04-10 19:16 | GENERAL SURGERY PROGRESS NOTE ---
DATE: 04/10/2019 Mr. English is to be seen in Dr. Alcantar's clinic at [facility] on Sunday the 15 of April. [facility] should contact him about the time. He will need to take a CT angiogram disk for Dr. Alcantar's review. He can go home any time as far as I am concerned. cc: MD Ronald Greco MD
[2019-04-11] MEDS: NORCO-10 PO PRN ×3 (02:10→10:36)
[2019-04-11] MEDS: LOVENOX SUBQ SCH ×2 (04:54→12:43)
[2019-04-11] MEDS: ZOSYN 3.375 GM in NS 50 ML IV SCH ×3 (04:54→12:43)
[2019-04-11] MEDS: TOPROL XL PO SCH (09:44)
[2019-04-11] MEDS: HUMULIN N SUBQ SCH (09:44)
[2019-04-11] MEDS: NORVASC PO SCH (09:45)
[2019-04-11] MEDS: NEURONTIN PO SCH ×2 (09:45→12:43)
--- NOTE | 2019-04-11 11:08 | PROGRESS NOTE ---
DATE: 04/11/2019 Guille English is in about the same general condition. He has received antibiotics for about 5 days. His cellulitis is much better. He is to see Dr. Alcantar on Sunday for his left foot. He is in a lot of pain. I am going to discharge him today with a prescription of [place] 10 t.i.d. p.r.n. 30 tablets. cc: Ronald Desai MD
[2019-04-11 12:59] VITALS: BP 159/90
--- NOTE | 2019-04-12 08:43 | DISCHARGE SUMMARY ---
ADMISSION DATE: 04/04/2019 DISCHARGE DATE: 04/11/2019 Mr. English who is a 53-year-old gentleman was admitted with gangrene of the left middle toe as well as fore part of the foot with necrotic tissue. He also had cellulitis. Laboratory data in the hospital had revealed amputation of the 2nd toe and soft tissue edema on the foot. He had cellulitis. Microbiology for the culture results revealed Citrobacter freundii and Enterobacter cloacae, all sensitive to Piperacillin for 7 days. He was seen by Dr. Fong in consultation. Initially seen by Dr. Mena and later on Dr. Fong. Dr. Fong thought that he needed to consult 3rd [employer] party personnel surgeon and he contacted Dr. Alcantar at [facility] who wants to see him and he will be seen this coming Sunday that is the 15 of April. FINAL DIAGNOSES: Cellulitis left foot with gangrenous changes in the left middle toe as well as forefoot. The full course will depend on the outcome there. He is going to see a vascular surgeon as an outpatient. cc: Ronald Desai MD
--- NOTE | 2019-04-12 08:45 | DISCHARGE SUMMARY ---
ADMISSION DATE: 04/04/2019 DISCHARGE DATE: 04/11/2019 ADDENDUM: Mr. English was prescribed on the day of discharge, [place] 10 t.i.d. p.r.n., 30 tablets by me. cc: Ronald Desai MD
--- NOTE | 2019-04-14 21:29 | DISCHARGE SUMMARY ---
ADMISSION DATE: 04/04/2019 DISCHARGE DATE: 04/11/2019 DISCHARGE SUMMARY ADDENDUM: He had localized infection with cellulitis only in the left foot. cc: Ronald Desai MD
--- NOTE | 2019-04-15 09:45 | DISCHARGE SUMMARY ---
ADMISSION DATE: 04/04/2019 DISCHARGE DATE: 04/11/2019 DISCHARGE SUMMARY ADDENDUM: He had cellulitis in the left foot. The origin or the cause of the cellulitis is clinically undetermined. It is because of the necrosis and infection in the tissue; however the detail unable. It is certainly not due to or resulting from the surgery. cc: Ronald Desai MD
== END 2019-04-11 13:50 | disposition home health service (06) | DRG 300 ==
LOC: ED 15:34 → 3N 15:35 → 4N 21:04
PROVIDERS: ADMIT Internal Medicine; ATTEND Internal Medicine
CPT/HCPCS: 71010; 71045; 73630; 80053; 82009; 82948; 83605; 85025; 85651; 87040; 87070; 87077; 87186; 94761; 96365; 96366; 96375; 99285; A9270; J1650; J2270; J2543; J7030; XXXXX